=== PATIENT | female | born 1995 | race Caucasian/White ===

== ENCOUNTER 2020-09-07 14:13 | Inpatient (IN) ==
[2020-09-07 15:01] LABS: Urine Appearance Clear; Urine Bilirubin Negative (Negative); Urine Blood Negative (Negative); Urine Color Straw; Urine Glucose Negative (Negative); Urine Ketones Negative (Negative); Urine Nitrite Negative (Negative); Urine Protein Negative (Negative); Urine Specific Gravity 1.005 (1.002-1.030); Urine Urobilinogen Negative (Negative)
[2020-09-07 15:09] LABS: ABS Eosinophils 0.1 10^3/ul (0-0.6); ABS Lymphocytes 1.8 10^3/ul (1.0-4.8); ABS Monocytes 0.5 10^3/ul (0-0.8); ABS Neutrophils 7.2 10^3/ul (1.5-7.7); Eosinophil % 0.7 %; Hematocrit 43 % (35-47); Hemoglobin 14.7 g/dL (12.0-16.0); Lymphocyte % 18.8 %; Mean Corpuscular HGB Conc 34 g/dL (31-36); Mean Corpuscular Hemoglobin 33 pg (27-31); Mean Corpuscular Volume 95 fL (80-97); Mean Platelet Volume 7.7 fL (7.4-10.4); Platelet Count 321 10^3/uL (150-450); Red Cell Distribution Width 13 % (10-15); White Blood Count 9.5 10^3/uL (3.5-10.8)
[2020-09-07 15:33] LABS: Urine Benzodiazepine Screen None Detected (None Detect); Urine Cannabinoids Screen None Detected (None Detect); Urine Opiates Screen None Detected (None Detect)
[2020-09-07 15:48] LABS: ALT 11 U/L (7-52); AST 17 U/L (13-39); Albumin 5.1 g/dL (3.2-5.2); Albumin/Globulin Ratio 1.7 (1-3); Alkaline Phosphatase 45 U/L (34-104); Anion Gap 10 mmol/L (2-11); Blood Urea Nitrogen 10 mg/dL (6-24); CO2 Carbon Dioxide 26 mmol/L (22-32); Calcium 10.2 mg/dL (8.6-10.3); Chloride 102 mmol/L (101-111); EGFR African American 99.8 (>60); EGFR Non-African American 82.5 (>60); Glucose 93 mg/dL (70-100); Potassium 4.2 mmol/L (3.5-5.0); Sodium 138 mmol/L (135-145); Total Protein 8.1 g/dL (6.4-8.9)
[2020-09-07 15:54] LABS: Alcohol, S < 10 mg/dL (<10); Salicylate < 2.50 mg/dL (<30)
[2020-09-07 15:57] LABS: Acetaminophen < 15 mcg/mL
[2020-09-07] MEDS ORDERED: Al Hydrox/Mg Hydrox/Simet LIQ 30 ML UDC PO PRN (22:28)
[2020-09-07] MEDS ORDERED: Nicotine GUM 2MG FRUIT FLAVOR PO PRN (23:00)
[2020-09-08] MEDS: Vitamin THERAPEUTIC TAB PO SCH (09:56)
[2020-09-08 10:29] LABS: HCG Pregnancy < 0.60 mIU/mL
[2020-09-08] MEDS: CMCS: OMEGA-3 FATTY ACID 1000 mg(NF) PO SCH (13:18)
[2020-09-08] MEDS: Cholecalciferol (VIT D3) 1,000 unit TAB PO SCH (13:18)
[2020-09-09 08:26] LABS: HDL Cholesterol 61.6 mg/dL
[2020-09-09] MEDS: Vitamin THERAPEUTIC TAB PO SCH (10:00)
[2020-09-09] MEDS: Cholecalciferol (VIT D3) 1,000 unit TAB PO SCH (10:00)
[2020-09-09] MEDS: CMCS: OMEGA-3 FATTY ACID 1000 mg(NF) PO SCH (10:00)
[2020-09-10] MEDS: CMCS: OMEGA-3 FATTY ACID 1000 mg(NF) PO SCH (09:39)
[2020-09-10] MEDS: Cholecalciferol (VIT D3) 1,000 unit TAB PO SCH (09:39)
[2020-09-10] MEDS: Vitamin THERAPEUTIC TAB PO SCH (09:39)
[2020-09-11] MEDS: Cholecalciferol (VIT D3) 1,000 unit TAB PO SCH (08:35)
[2020-09-11] MEDS: CMCS: OMEGA-3 FATTY ACID 1000 mg(NF) PO SCH (08:35)
[2020-09-11] MEDS: Vitamin THERAPEUTIC TAB PO SCH (08:35)
[2020-09-12] MEDS: CMCS: OMEGA-3 FATTY ACID 1000 mg(NF) PO SCH (09:15)
[2020-09-12] MEDS: Vitamin THERAPEUTIC TAB PO SCH (09:15)
[2020-09-12] MEDS: Cholecalciferol (VIT D3) 1,000 unit TAB PO SCH (09:16)
[2020-09-13 09:25] VITALS: BP 121/77
[2020-09-13] MEDS: CMCS: OMEGA-3 FATTY ACID 1000 mg(NF) PO SCH (09:58)
[2020-09-13] MEDS: Cholecalciferol (VIT D3) 1,000 unit TAB PO SCH (09:58)
[2020-09-13] MEDS: Vitamin THERAPEUTIC TAB PO SCH (09:58)
== END 2020-09-13 13:24 | disposition home or self-care (01) | DRG 885 ==
LOC: ED 14:13 → BSU 21:00
PROVIDERS: ADMIT Psychiatry & Neurology Psychiatry; ATTEND Psychiatry & Neurology Psychiatry